=== PATIENT | female | born 1970 | race Caucasian/White ===

== ENCOUNTER → 2017-03-26 | Outpatient (CLI) | payer OTHER ==
[2017-03-26 08:38] LABS: CHOL/HDL RATIO 2.94 RATIO (0-4.0); LDL CHOLESTEROL,CALCULATED 82.4 mg/dL
== END ==
LOC: LAB 07:58
PROVIDERS: ATTEND Nurse Practitioner Family
DX: E78.5 Hyperlipidemia, unspecified (principal)
CPT/HCPCS: 36415; 82247; 82465; 82550; 82977; 83718; 84075; 84450; 84460; 84478